=== PATIENT | female | born 1975 | race Caucasian/White ===

== ENCOUNTER 2018-03-14 14:28 | Emergency (ER) | payer OTHER ==
[~2018-03-14] VITALS: Ht 160 cm; Wt 59.1 kg
[2018-03-14 15:01] VITALS: BP 109/68
[2018-03-14] MEDS ORDERED: IBUP-1984 PO (15:01)
== END 2018-03-14 15:12 | disposition home or self-care (01) ==
LOC: ER 14:32
DX: R51 Headache (principal); R11.0 Nausea; R19.8 Other specified symptoms and signs involving the digestive system and abdomen; V29.59XA Motorcycle passenger injured in collision with other motor vehicles in traffic accident, initial encounter; Y93.89 Activity, other specified; Y92.488 Other paved roadways as the place of occurrence of the external cause; Y99.8 Other external cause status
CPT/HCPCS: 99282